=== PATIENT | male | born 1965 | race Caucasian/White ===

== ENCOUNTER 2016-09-27 16:51 | Emergency (ER) | payer BC ==
[~2016-09-27 16:51] MED LIST: CYCLOBENZAPRINE10 MG PO; FLUTICASONE PRO16 GM NS; GLUCOPHAGE1000 MG PO; PROTONIX40 MG PO; ZYRTEC10 MG PO
== END 2016-09-27 19:20 | disposition left against medical advice (07) ==
LOC: ER 16:51
DX: I20.0 Unstable angina (principal); E11.9 Type 2 diabetes mellitus without complications; F17.210 Nicotine dependence, cigarettes, uncomplicated; Z79.84 Long term (current) use of oral hypoglycemic drugs; Z79.899 Other long term (current) drug therapy
CPT/HCPCS: 36415